=== PATIENT | female | born 1985 ===

== ENCOUNTER 2018-05-05 16:45 | Emergency (ER) | payer MEDICAID, OTHER ==
[2018-05-05 17:03] VITALS: TEMP 97.7
[2018-05-05] MEDS ORDERED: Albuterol-Ipratrop 3 mg / 0.5 (3 ml) UD IH STA (17:21)
[2018-05-05 17:26] LABS: BASO # 0.08 K/mm3 (0.0-2.0); BASO % 0.4 % (0.0-3.0); EOS # 0.1 (0.0-0.7); EOS % 0.6 % (1.5-5.0); GRAN # 14.43 (1.4-6.5); GRAN % 75.6 % (50.0-68.0); HEMOGLOBIN 9.1 g/dL (12.0-16.0); LYMPH # 3.5 (1.2-3.4); LYMPH % 18.1 % (22.0-35.0); MEAN CORPUSCULAR HEMOGLOBIN 27.2 pg (25.0-35.0); MEAN CORPUSCULAR HGB CONC 31.6 g/dl (31.0-37.0); MEAN PLATELET VOLUME 8.8 fl (7.0-11.0); MONO % 5.3 % (1.0-6.0); RBC 3.35 10^6/uL (3.5-6.1); RED CELL DISTRIBUTION WIDTH 18.1 % (11.5-14.5); WHITE BLOOD COUNT 19.1 10^3/uL (4.5-11.0)
[2018-05-05 17:36] LABS: INR 1.44; PARTIAL THROMBOPLASTIN TIME 28.2 Seconds (25.1-36.5); PROTHROMBIN TIME 16.5 SECONDS (9.4-12.5)
--- NOTE | 2018-05-05 17:44 | RAD ---
Date of service: 05/05/2018 HISTORY: cough COMPARISON: No prior. FINDINGS: LUNGS: Pulmonary vascular congestion. PLEURA: Right pleural effusion. No pneumothorax apparent. CARDIOVASCULAR: No aortic atherosclerotic calcification present. Normal cardiac size. No pulmonary vascular congestion. OSSEOUS STRUCTURES: No significant abnormalities. VISUALIZED UPPER ABDOMEN: Normal. OTHER FINDINGS: None. IMPRESSION: Pulmonary vascular congestion and right pleural effusion.
[2018-05-05 17:46] LABS: ARTERIAL BLOOD GAS HCO3 28.4 mmol/L (21-28); ARTERIAL BLOOD GAS PCO2 34 mm/Hg (35-45); ARTERIAL BLOOD GAS PH 7.53 (7.35-7.45); ARTERIAL BLOOD GAS TCO2 29.4 mmol.L (22-28)
[2018-05-05 17:51] LABS: D DIMER > 5250 ng/mlDDU (0-243)
[2018-05-05 17:51] LABS: URINE BILIRUBIN SMALL (NEGATIVE); URINE BLOOD NEGATIVE (NEGATIVE); URINE GLUCOSE (UA) NEGATIVE (NEGATIVE); URINE LEUKOCYTE ESTERASE NEGATIVE Leu/uL (NEGATIVE); URINE PROTEIN 30 mg/dL (<30 mg/dL)
[2018-05-05 17:52] LABS: URINE APPEARANCE CLEAR (CLEAR); URINE COLOR DARK YELLOW (YELLOW)
[2018-05-05 17:53] LABS: HCG,QUALITATIVE URINE NEGATIVE (NEGATIVE)
[2018-05-05 17:56] LABS: URINE BACTERIA MANY (NEG); URINE RBC 0 - 2 /hpf (0-2); URINE WBC 0 - 2 /hpf (0-6)
[2018-05-05] MEDS ORDERED: Vancomycin 1gm in NS 250ml 1 GM/250 ML BAG IVPB STA (18:05)
[2018-05-05] MEDS ORDERED: Aztreonam 1 Gm in NS 100mL 100 ML IVPB STA (18:05)
[2018-05-05 18:12] LABS: ALB/GLOB RATIO 0.6 (1.1-1.8); ALBUMIN 3.1 g/dL (3.0-4.8); ALT/SGPT 20 U/L (7-56); AST/SGOT 39 U/L (14-36); BLOOD UREA NITROGEN 23 mg/dL (7-21); CALCIUM 8.9 mg/dL (8.4-10.5); GFR NON-AFRICAN AMERICAN > 60
[2018-05-05 18:23] LABS: B-TYPE NATRIURETIC PEPTIDE 274 pg/mL (0-450); TROPONIN I < 0.01 ng/mL
[2018-05-05] MEDS ORDERED: Sodium Chloride 0.9% 1,000 ML IV STA (18:25)
--- NOTE | 2018-05-05 19:07 | ED PDOC ---
Arrival/HPI - General Chief Complaint: Shortness Of Breath Time Seen by Provider: 05/05/18 17:11 - History of Present Illness Narrative History of Present Illness (Text): 05/05/18 19:07 33-year-old female presents today with worsening shortness of breath over the past 4 weeks. On March 28 the patient was seen at [facility] and was diagnosed with pneumonia and pleural effusion. At that time the patient signed out AGAINST MEDICAL ADVICE and then return to the emergency room again on 04/01/2018 for shortness of breath and again signed out AGAINST MEDICAL ADVICE. Patient states she was sent home on antibiotics and has been gradually worsening over the past 4 weeks. Patient states she's come to the point that she's had decreased appetite she feels very fatigued to the point where she needs assistance when she is walking to the bathroom. Patient denies calf pain. Denies any recent travel. Patient states she currently smokes and has been smoking since she was 13 years old. Patient states she's been having a productive cough with right-sided chest pain. Patient states the sputum is green in color. Past Medical History - Provider Review Nursing Documentation Reviewed: Yes - Travel History Have you recently traveled outside [place] w/in the past 3 mons?: No - Infectious Disease Hx of Infectious Diseases: None - Cardiac Hx Cardiac Disorders: No - Pulmonary Hx Respiratory Disorders: Yes Hx Asthma: Yes Hx Chronic Obstructive Pulmonary Disease (COPD): Yes - Neurological Hx Neurological Disorder: No - HEENT Hx HEENT Disorder: No - Renal Hx Renal Disorder: Yes Other/Comment: Endometriosis. ovarian cysts - Endocrine/Metabolic Hx Endocrine Disorders: Yes Hx Systemic Lupus Erythematosus: Yes - Hematological/Oncological Hx Blood Disorders: No - Integumentary Hx Dermatological Disorder: Yes (Alopecia) - Musculoskeletal/Rheumatological Hx Musculoskeletal Disorders: Yes Hx Rheumatoid Arthritis: Yes - Gastrointestinal Hx Gastrointestinal Disorders: No - Genitourinary/Gynecological Hx Genitourinary Disorders: No - Psychiatric Hx Psychophysiologic Disorder: Yes Hx Anxiety: Yes Hx Bipolar Disorder: Yes Hx Substance Use: No - Surgical History Hx Appendectomy: Yes - Anesthesia Hx Anesthesia: Yes - Suicidal Assessment Feels Threatened In Home Enviroment: No Family/Social History - Physician Review Nursing Documentation Reviewed: Yes Family/Social History: Unknown Family HX Smoking Status: Heavy Smoker > 10 Cigarettes Daily Hx Alcohol Use: No Hx Substance Use: No Allergies/Home Meds Allergies/Adverse Reactions: Allergies Penicillins Allergy (Verified 05/05/18 17:13) SWELLING Home Medications: Home Meds Medication Instructions Recorded Confirmed Albuterol 0.083% [Albuterol 0.083% 2.5 mg INH PRN PRN 03/29/18 03/29/18 Inhal Ila (2.5 mg/3 ml) UD] Albuterol Sulfate [Ventolin Hfa] 2 puff INH BID PRN 03/29/18 03/29/18 Albuterol/Ipratropium [Combivent 1 puff INH PRN PRN 03/29/18 03/29/18 Respimat] Cyclobenzaprine [Flexeril] 10 mg PO TID 03/29/18 03/29/18 Gabapentin [Neurontin] 300 mg PO TID 03/29/18 03/29/18 Meloxicam [Mobic] 15 mg PO DAILY 03/29/18 03/29/18 Pregabalin [Lyrica] 225 mg PO BID 03/29/18 03/29/18 Tocilizumab [Actemra] 162 mg IM QWK 03/29/18 03/29/18 traMADol [Ultram] 50 mg PO Q6 03/29/18 03/29/18 Review of Systems - Review of Systems Constitutional: Fatigue. absent: Fevers ENT: absent: Sore Throat, Sinus Congestion Respiratory: SOB, Cough, Sputum Cardiovascular: Chest Pain (right sided) Gastrointestinal: Appetite Changes. absent: Abdominal Pain, Constipation, Diarrhea, Nausea, Vomiting Genitourinary Female: absent: Dysuria, Frequency, Hematuria Musculoskeletal: absent: Arthralgias, Back Pain, Neck Pain Skin: absent: Rash, Pruritis Neurological: absent: Headache, Dizziness Psychiatric: absent: Anxiety, Depression, Suicidal Ideation Physical Exam Vital Signs Reviewed: Yes Vital Signs Temp Pulse Resp BP Pulse Ox 05/05/18 17:18 22 05/05/18 17:02 97.7 F 108 H 20 97/52 L 99 Temperature: Afebrile Blood Pressure: Hypotensive Pulse: Tachycardic Respiratory Rate: Normal Appearance: Positive for: Non-Toxic, Comfortable, Ill-Appearing Pain Distress: None Mental Status: Positive for: Alert and Oriented X 3 - Systems Exam Head: Present: Atraumatic Mouth: Present: Normal Lips, Normal Tounge. No: Drooling, Trismus Neck: Present: Normal Range of Motion, Trachea Midline Respiratory/Chest: Present: Good Air Exchange, Decreased Breath Sounds (+ decreased breath sounds right sided), Rhonchi (rhonchi noted left lung), Ta chypneic, Tender to Palpation (+ minimal ttp over right anterior chest pain). No: Clear to Auscultation, Respiratory Distress, Accessory Muscle Use, Wheezes Cardiovascular: Present: Tachycardic. No: Murmurs Abdomen: No: Tenderness, Distention, Rebound, Guarding Upper Extremity: Present: Normal ROM Lower Extremity: Present: Normal ROM Neurological: Present: GCS=15, Speech Normal Skin: Present: Warm, Dry, Normal Color. No: Rashes Psychiatric: Present: Alert, Oriented x 3 Medical Decision Making ED Course and Treatment: 05/05/18 19:24 33yr old female with 4 week hx of worsening SOB, productive cough. pt tachycardia, tachypnea, blood pressure 95/63. Patient saturating 97% on room air Alert and oriented. Chest x-ray:FINDINGS: LUNGS: Pulmonary vascular congestion. PLEURA: Right pleural effusion. No pneumothorax apparent. CARDIOVASCULAR: No aortic atherosclerotic calcification present. Normal cardiac size. No pulmonary vascular congestion. OSSEOUS STRUCTURES: No significant abnormalities. VISUALIZED UPPER ABDOMEN: Normal. OTHER FINDINGS: None. IMPRESSION: Pulmonary vascular congestion and right pleural effusion. CBC White blood cell count 19.1, hemoglobin 9.1 CMP sodium 128 BUN 23 creatinine 0.9 Troponin within normal limits BMP within normal limits D-dimer is greater than 5250 Lactate 2.0 Blood and urine cultures are pending Code sepsis was called. Patient was started on normal saline 30 mL per KG bolus. Patient was started on vancomycin and aztreonam IV CT Angio; case discussed with dr. Barbara vu in depth; all results discussed with patient in depth. pt agrees to stay in hospital. case discussed with dr. Frank; accepts admission for sepsis, pleural effusion, leukocytosis. I advised dr. frank and medial resident to follow with CTA results. impression; sepsis, pleural effusion, leukocytosis, dyspnea admit to tele. 05/05/18 23:19 the patient was seen at beside by the resident and dr frank. the decision to upgrade patient to ICU was made. inhouse transfer order to ICU was entered. - Lab Interpretations Lab Results: 05/05/18 17:10 05/05/18 17:50 Lab Results 05/05/18 17:50: Sodium 128 L, Chloride 86 L, Potassium 4.0, Carbon Dioxide 31, Anion Gap 16, BUN 23 H, Creatinine 0.9, Est GFR ( Amer) > 60, Est GFR (Non-Af Amer) > 60, Random Glucose 129 H, Calcium 8.9, Total Bilirubin 0.6, AST 39 H D, ALT 20, Alkaline Phosphatase 190 H, Lactate Dehydrogenase 491, Total Creatine Kinase 100, Troponin I < 0.01, NT-Pro-B Natriuret Pep 274, Total Protein 8.0, Albumin 3.1, Globulin 4.9, Albumin/Globulin Ratio 0.6 L 05/05/18 17:44: pCO2 34 L, pO2 67.0 L, HCO3 28.4 H, ABG pH 7.53 H, ABG Total CO2 29.4 H, ABG O2 Saturation 94.0 L, ABG Base Excess 5.8 H, ABG Potassium 3.2 L, Sodium 127.0 L, Chloride 93.0 L, Glucose 124 H, Lactate 2.0, FiO2 21.0, Arterial Blood Potassium 3.2 L 05/05/18 17:43: Urine Color Dark yellow, Urine Appearance Clear, Urine pH 6.0, Ur Specific [place] 1.025, Urine Protein 30 H, Urine Glucose (UA) Negative, Urin e Ketones Negative, Urine Blood Negative, Urine Nitrate Negative, Urine Bilirubin Small H, Urine Urobilinogen 1.0 H, Ur Leukocyte Esterase Negative, U rine RBC 0 - 2, Urine WBC 0 - 2, Ur Epithelial Cells 10 - 12, Urine Bacteria Many, Urine HCG, Qual Negative 05/05/18 17:10: PT 16.5 H, INR 1.44, APTT 28.2, D-Dimer, Quantitative > 5250 H 05/05/18 17:10: WBC 19.1 H, RBC 3.35 L, Hgb 9.1 L, Hct 28.8 L, MCV 86.0, MCH 27.2, MCHC 31.6, RDW 18.1 H, Plt Count 610 H, MPV 8.8, Gran % 75.6 H, Lymph % (Auto) 18.1 L, [place] % (Auto) 5.3, Eos % (Auto) 0.6 L, Baso % (Auto) 0.4, Gran # 14.43 H, Lymph # (Auto) 3.5 H, [place] # (Auto) 1.0 H, Eos # (Auto) 0.1, Baso # (Auto) 0.08 - RAD Interpretation Radiology Orders: 05/05/18 17:12 CHEST PORTABLE [RAD] Stat 05/05/18 18:16 ANGIO CHEST PE PROTOCOL [CT] Stat - Medication Orders Current Medication Orders: Aztreonam (Azactam 1 Gm) 100 mls @ 100 mls/hr IVPB STAT STA; Protocol Stop: 05/05/18 19:04 Last Admin: 05/05/18 18:21 Dose: 100 mls/hr eMAR Start Stop Document 05/05/18 18:21 TA (Rec: 05/05/18 18:21 TA [email or web address] Intravenous Solution Start Date 05/05/18 Start Time 18:21 Vancomycin HCl (Vancomycin 1gm) 1 gm in 250 mls @ 167 mls/hr IVPB STAT STA; Protocol Stop: 05/05/18 19:34 Last Admin: 05/05/18 18:58 Dose: 167 mls/hr eMAR Start Stop Document 05/05/18 18:58 TA (Rec: 05/05/18 18:58 TA [email or web address] Intravenous Solution Start Date 05/05/18 Start Time 18:58 Discontinued Medications Albuterol/Ipratropium (Duoneb 3 Mg/0.5 Mg (3 Ml) Ud) 3 ml IH STAT STA Stop: 05/05/18 17:22 Last Admin: 05/05/18 18:25 Dose: 3 ml Sodium Chloride 2,160 ml/ IV (SUPPLIES) 2,160 mls @ 4,354.5 mls/hr IV ONCE ONE Stop: 05/05/18 18:59 Last Admin: 05/05/18 18:48 Dose: 4,354.5 mls/hr eMAR Start Stop Document 05/05/18 18:48 TA (Rec: 05/05/18 18:48 TA [email or web address]) Intravenous Solution Start Date 05/05/18 Start Time 18:48 Disposition/Present on Arrival - Present on Arrival Any Indicators Present on Arrival: No History of DVT/PE: No History of Uncontrolled Diabetes: No Urinary Catheter: No History of Decub. Ulcer: No History Surgical Site Infection Following: None - Disposition Have Diagnosis and Disposition been Completed?: Yes Diagnosis: Pleural effusion, COPD (chronic obstructive pulmonary disease), Shortness of breath, Chest pain Disposition: HOSPITALIZED Disposition Time: 18:50 Patient Plan: Admission, Telemetry Patient Problems: Current Active Problems Problem Status Onset COPD (chronic obstructive pulmonary disease) Acute Chest pain Acute Pleural effusion Acute Shortness of breath Acute Condition: GUARDED
[2018-05-05] MEDS ORDERED: Iohexol 350 MG/100 ML VIAL ONE (19:09)
[2018-05-05 20:28] VITALS: O2SAT 100
[2018-05-05] MEDS ORDERED: Levalbuterol 1.25 MG/3 ML Inhal Soln UD IH STA (20:51)
[2018-05-05] MEDS ORDERED: Heparin25000 units/250ml 1/2NS 25,000 UNITS/250 ML BAG IV PRN (21:07)
[2018-05-05] MEDS ORDERED: Levalbuterol 0.63 MG/3 ML Inhal Soln UD IH PRN (21:17)
[2018-05-05 21:26] VITALS: BMI 28.2
[2018-05-05] MEDS ORDERED: Heparin 25,000units in 1/2NS /250 ML BAG IV PRN (21:27)
--- NOTE | 2018-05-05 21:51 | CP.PCM.HP ---
<Felton Russell - Last Filed: 05/06/18 04:46> History of Present Illness - History of Present Illness History of Present Illness: Felton Russell DO PGY1 - Internal Medicine Operational Risk Consultant - Hospital H&P CC: SOB / Chest Tenderness 33F w/ a PMH Of COPD, RA, Fibromyalgia presented to [facility] on 05[place]05 w/ a CC of chest tenderness, and shortness of breath x1mo She reports no inciting factors which caused her symptoms; states that her complaints have been significantly worsening over the past 3 weeks. She reports that she is having trouble breathing, chest tightness, shortness of breath, orthopnea, dyspnea on exertion, cough of 2 weeks with dark brown phlegm. Patient reports associated symptoms of sweating, intermittent fevers/chills, weight loss (unknown amount) over the past month, decreased appetite, weakness. She reported that she had been seen twice in the ED for her symptoms however had to AMA due to not being able to care for her children; she reports seeing a pulmonlogist outpatient who recommended bronchodilator therapy. Remainder of 12 system ROS is negative. PMD: Tello Stoner Rheum: Hannah Pharm[facility]: [facility] PMH: RA, Fibromyalgia Dx 2 year ago; COPD not on home O2 PSH: Laproscopic appendectomy Social: 10 pack year history; EtOH denies; Illicit drug use denies Family Hx: Denies Allergies: Penicillin Home Rx: Meloxicam 15 QD, Cyclobenzaprine 10 TID, Lyrica 225 BID, Gabapentin 300 TID Present on Admission - Present on Admission Any Indicators Present on Admission: No Review of Systems - Review of Systems All systems: reviewed and no additional remarkable complaints except Review of Systems: As per HPI Past Patient History - Infectious Disease Hx of Infectious Diseases: None - Past Social History Smoking Status: Heavy Smoker > 10 Cigarettes Daily - CARDIAC Hx Cardiac Disorders: No - PULMONARY Hx Respiratory Disorders: Yes Hx Asthma: Yes Hx Chronic Obstructive Pulmonary Disease (COPD): Yes - NEUROLOGICAL Hx Neurological Disorder: No - HEENT Hx HEENT Problems: No - RENAL Hx Chronic Kidney Disease: Yes Other/Comment: Endometriosis. ovarian cysts - ENDOCRINE/METABOLIC Hx Endocrine Disorders: Yes Hx Systemic Lupus Erythematosus: Yes - HEMATOLOGICAL/ONCOLOGICAL Hx Blood Disorders: No - INTEGUMENTARY Hx Dermatological Problems: Yes (Alopecia) - MUSCULOSKELETAL/RHEUMATOLOGICAL Hx Musculoskeletal Disorders: Yes Hx Rheumatoid Arthritis: Yes - GASTROINTESTINAL Hx Gastrointestinal Disorders: No - GENITOURINARY/GYNECOLOGICAL Hx Genitourinary Disorders: No - PSYCHIATRIC Hx Psychophysiologic Disorder: Yes Hx Anxiety: Yes Hx Bipolar Disorder: Yes Hx Substance Use: No - SURGICAL HISTORY Hx Appendectomy: Yes - ANESTHESIA Hx Anesthesia: Yes Meds Allergies/Adverse Reactions: Allergies Allergy/AdvReac Type Severity Reaction Status Date / Time Penicillins Allergy SWELLING Verified 05/06/18 01:24 Physical Exam - Constitutional Appears: No Acute Distress, Older Than Stated Age, Chronically Ill - Head Exam Head Exam: ATRAUMATIC Additional comments: Alopecia - Eye Exam Eye Exam: EOMI, Normal appearance, PERRL. absent: Scleral icterus - ENT Exam ENT Exam: Mucous Membranes Moist Additional comments: some crusting/ poor oral hygeine - Neck Exam Neck exam: Positive for: Normal Inspection. Negative for: Tenderness - Respiratory Exam Additional comments: Upon auscultation; Her R lobe is aerating well; no crackles; Her L lobe breath sounds are worsening moving from upper parker to lower Mild rales appreciated on exam; no wheezes appreciated. - Cardiovascular Exam Cardiovascular Exam: Tachycardia, +S1, +S2 - GI/Abdominal Exam GI & Abdominal Exam: Distended (Tympanic), Normal Bowel Sounds, Soft. absent: Tenderness - Extremities Exam Extremities exam: Positive for: normal inspection, pedal pulses present. Negative for: pedal edema, tenderness - Back Exam Back exam: absent: CVA tenderness (L), CVA tenderness (R) - Neurological Exam Neurological exam: Alert, CN II-XII Intact, Oriented x3 - Psychiatric Exam Psychiatric exam: Normal Affect, Normal Mood - Skin Skin Exam: Dry, Intact, Normal Color, Warm Results - Vital Signs Recent Vital Signs: Last Vital Signs Temp 97.7 F 05/05/18 17:02 Pulse 102 H 05/05/18 20:27 Resp 18 05/05/18 20:27 BP 109/62 05/05/18 20:27 Pulse Ox 100 05/05/18 20:27 - Labs Result Diagrams: 05/05/18 17:10 05/05/18 17:50 Labs: Laboratory Results - last 24 hr 05/05/18 05/05/18 05/05/18 17:10 17:10 17:43 WBC 19.1 H RBC 3.35 L Hgb 9.1 L Hct 28.8 L MCV 86.0 MCH 27.2 MCHC 31.6 RDW 18.1 H Plt Count 610 H MPV 8.8 Gran % 75.6 H Lymph % (Auto) 18.1 L [place] % (Auto) 5.3 Eos % (Auto) 0.6 L Baso % (Auto) 0.4 Gran # 14.43 H Lymph # (Auto) 3.5 H [place] # (Auto) 1.0 H Eos # (Auto) 0.1 Baso # (Auto) 0.08 PT 16.5 H INR 1.44 APTT 28.2 D-Dimer, Quantitative > 5250 H pCO2 pO2 HCO3 ABG pH ABG Total CO2 ABG O2 Saturation ABG Base Excess ABG Potassium Sodium Chloride Glucose Lactate FiO2 Potassium Carbon Dioxide Anion Gap BUN Creatinine Est GFR ( Amer) Est GFR (Non-Af Amer) Random Glucose Calcium Total Bilirubin AST ALT Alkaline Phosphatase Lactate Dehydrogenase Total Creatine Kinase Troponin I NT-Pro-B Natriuret Pep Total Protein Albumin Globulin Albumin/Globulin Ratio Arterial Blood Potassium Urine Color Dark yellow Urine Appearance Clear Urine pH 6.0 Ur Specific [place] 1.025 Urine Protein 30 H Urine Glucose (UA) Negative Urine Ketones Negative Urine Blood Negative Urine Nitrate Negative Urine Bilirubin Small H Urine Urobilinogen 1.0 H Ur Leukocyte Esterase Negative Urine RBC 0 - 2 Urine WBC 0 - 2 Ur Epithelial Cells 10 - 12 Urine Bacteria Many Urine HCG, Qual Negative 05/05/18 05/05/18 17:44 17:50 WBC RBC Hgb Hct MCV MCH MCHC RDW Plt Count MPV Gran % Lymph % (Auto) [place] % (Auto) Eos % (Auto) Baso % (Auto) Gran # Lymph # (Auto) [place] # (Auto) Eos # (Auto) Baso # (Auto) PT INR APTT D-Dimer, Quantitative pCO2 34 L pO2 67.0 L HCO3 28.4 H ABG pH 7.53 H ABG Total CO2 29.4 H ABG O2 Saturation 94.0 L ABG Base Excess 5.8 H ABG Potassium 3.2 L Sodium 127.0 L 128 L Chloride 93.0 L 86 L Glucose 124 H Lactate 2.0 FiO2 21.0 Potassium 4.0 Carbon Dioxide 31 Anion Gap 16 BUN 23 H Creatinine 0.9 Est GFR ( Amer) > 60 Est GFR (Non-Af Amer) > 60 Random Glucose 129 H Calcium 8.9 Total Bilirubin 0.6 AST 39 H D ALT 20 Alkaline Phosphatase 190 H Lactate Dehydrogenase 491 Total Creatine Kinase 100 Troponin I < 0.01 NT-Pro-B Natriuret Pep 274 Total Protein 8.0 Albumin 3.1 Globulin 4.9 Albumin/Globulin Ratio 0.6 L Arterial Blood Potassium 3.2 L Urine Color Urine Appearance Urine pH Ur Specific [place] Urine Protein Urine Glucose (UA) Urine Ketones Urine Blood Urine Nitrate Urine Bilirubin Urine Urobilinogen Ur Leukocyte Esterase Urine RBC Urine WBC Ur Epithelial Cells Urine Bacteria Urine HCG, Qual Assessment & Plan - Assessment and Plan (Free Text) Assessment: PMH Of COPD, RA, Fibromyalgia presented to [facility] ED on 05/05 w/ a CC of chest tenderness, and shortness of breath x1mo; found to have massive parapneumonic effusion of the R lung w/ gross atelectasis of the RML/RLL. Plan: Parapneumonic effusion w/ B type symptoms Etiologies: Lung CA, Pneumonia, CHF, PE, Hemothorax, Empyema No recent evidence or history of trauma reported BNP: WNL D-Dimer elevated CTA CHEST PE PROTCOL: 1. Large complex and right pleural effusion w/ probable empyema which compresses the entire right lung. Pockets of air are seen suspicious for infection of the right effusion. 2. No evidence of central or segmental PE is seen 3. Incidentally, enlarged liver and mild diffuse fatty infiltration as well as a small cystic lesion is seen in the abdomen. 4. Ground glass and nodular infiltrates are seen throughout both lungs, likely representing a diffuse disseminated infection. 5. Aortopulmonary window a precarinal lymphadenopathy is seen, likely reactive in nature HIV 1/2 Procal pending ABG Shock Mycobac cult/stain / AFB smear Sputum Cx BLood Cx Xopenex Q6H PRN Protonix 40 IVP Vancomycin 1gm QD ID Consulted Heme Onc Consulted CT Surgery Consulted - will most likely need thoracotomy Hepatic Hyperdensity AST/ALT wnl; Alk Phos elevated; Tbili normal Abd US CEA, AFP Normocytic Anemia B12 / Folic Acid; pending Iron 45; TIBC 209L ; Ferritin pending Reticulocyte Count ; pending Hx COPD - Not in acute exacerbation Xopenex Q6 PRN Hx Fibromyalgia : C/w home Meloxicam 15 QD, Cyclobenzaprine 10 TID, Lyrica 225 BID, Gabapentin 300 TID DISPO: Transfer to [facility] for CT Surgical Services/ Further Surgical Evaluation GI/DVT PPX: Protonix/ SCD Patient was seen, examined, discussed w/ attending physician Dr. Lorna Russell DO PGY1 - Internal Medicine Operational Risk Consultant - Date & Time Date: 05/06/18 Time: 00:42 <Sherley Rothman - Last Filed: 05/06/18 06:49> Results - Vital Signs Recent Vital Signs: Last Vital Signs Temp 97.7 F 05/06/18 00:35 Pulse 103 H 05/06/18 00:35 Resp 18 05/06/18 00:35 BP 108/72 05/06/18 00:35 Pulse Ox 100 05/06/18 00:35 - Labs Result Diagrams: 05/05/18 17:10 05/05/18 17:50 Labs: Laboratory Results - last 24 hr 05/05/18 05/05/18 05/05/18 17:10 17:10 17:43 WBC 19.1 H RBC 3.35 L Hgb 9.1 L Hct 28.8 L MCV 86.0 MCH 27.2 MCHC 31.6 RDW 18.1 H Plt Count 610 H MPV 8.8 Gran % 75.6 H Lymph % (Auto) 18.1 L [place] % (Auto) 5.3 Eos % (Auto) 0.6 L Baso % (Auto) 0.4 Gran # 14.43 H Lymph # (Auto) 3.5 H [place] # (Auto) 1.0 H Eos # (Auto) 0.1 Baso # (Auto) 0.08 PT 16.5 H INR 1.44 APTT 28.2 D-Dimer, Quantitative > 5250 H pCO2 pO2 HCO3 ABG pH ABG Total CO2 ABG O2 Saturation ABG Base Excess ABG Potassium Sodium Chloride Glucose Lactate FiO2 Potassium Carbon Dioxide Anion Gap BUN Creatinine Est GFR ( Amer) Est GFR (Non-Af Amer) Random Glucose Calcium Iron TIBC % Saturation Total Bilirubin AST ALT Alkaline Phosphatase Lactate Dehydrogenase Total Creatine Kinase Troponin I NT-Pro-B Natriuret Pep Total Protein Albumin Globulin Albumin/Globulin Ratio Arterial Blood Potassium Urine Color Dark yellow Urine Appearance Clear Urine pH 6.0 Ur Specific [place] 1.025 Urine Protein 30 H Urine Glucose (UA) Negative Urine Ketones Negative Urine Blood Negative Urine Nitrate Negative Urine Bilirubin Small H Urine Urobilinogen 1.0 H Ur Leukocyte Esterase Negative Urine RBC 0 - 2 Urine WBC 0 - 2 Ur Epithelial Cells 10 - 12 Urine Bacteria Many Urine HCG, Qual Negative 05/05/18 05/05/18 05/05/18 17:44 17:50 17:50 WBC RBC Hgb Hct MCV MCH MCHC RDW Plt Count MPV Gran % Lymph % (Auto) [place] % (Auto) Eos % (Auto) Baso % (Auto) Gran # Lymph # (Auto) [place] # (Auto) Eos # (Auto) Baso # (Auto) PT INR APTT D-Dimer, Quantitative pCO2 34 L pO2 67.0 L HCO3 28.4 H ABG pH 7.53 H ABG Total CO2 29.4 H ABG O2 Saturation 94.0 L ABG Base Excess 5.8 H ABG Potassium 3.2 L Sodium 127.0 L 128 L Chloride 93.0 L 86 L Glucose 124 H Lactate 2.0 FiO2 21.0 Potassium 4.0 Carbon Dioxide 31 Anion Gap 16 BUN 23 H Creatinine 0.9 Est GFR ( Amer) > 60 Est GFR (Non-Af Amer) > 60 Random Glucose 129 H Calcium 8.9 Iron 45 TIBC 209 L % Saturation 22 Total Bilirubin 0.6 AST 39 H D ALT 20 Alkaline Phosphatase 190 H Lactate Dehydrogenase 491 Total Creatine Kinase 100 Troponin I < 0.01 NT-Pro-B Natriuret Pep 274 Total Protein 8.0 Albumin 3.1 Globulin 4.9 Albumin/Globulin Ratio 0.6 L Arterial Blood Potassium 3.2 L Urine Color Urine Appearance Urine pH Ur Specific [place] Urine Protein Urine Glucose (UA) Urine Ketones Urine Blood Urine Nitrate Urine Bilirubin Urine Urobilinogen Ur Leukocyte Esterase Urine RBC Urine WBC Ur Epithelial Cells Urine Bacteria Urine HCG, Qual Attending/Attestation - Attestation I have personally seen and examined this patient.: Yes I have fully participated in the care of the patient.: Yes I have reviewed all pertinent clinical information: Yes
[2018-05-05] MEDS ORDERED: Aztreonam 1 Gm in NS 100mL 100 ML IVPB SCH (22:00)
--- NOTE | 2018-05-05 22:06 | CARD ---
APPROVED REPORT Date of service: 05/05/2018 EKG Measurement Heart [id number] <Conclusion> Sinus tachycardia Otherwise normal ECG
[2018-05-05 23:20] LABS: IRON 45 ug/dL (45-180)
[2018-05-05 23:25] LABS: TOTAL IRON BINDING CAPACITY 209 ug/dL (265-497)
[2018-05-05 23:38] LABS: % IRON SATURATION 22 % (20-55)
--- NOTE | 2018-05-06 01:20 | CP.PCM.DIS ---
<Felton Russell - Last Filed: 05/06/18 04:18> Provider - Provider Date of Admission: 05/05/18 20:05 Attending physician: Sherley Allen Primary care physician: Herbie Javed Consults: General Surgery - Dr. Rocha Accepting Transfer Physician - Manuel Thomas Time Spent in preparation of Discharge (in minutes): 45 Diagnosis - Discharge Diagnosis (1) Parapneumonic effusion Status: Acute Priority: High (2) Normocytic anemia Status: Acute Priority: Medium (3) COPD (chronic obstructive pulmonary disease) Status: Chronic Priority: Medium Hospital Course - Lab Results Lab Results: Most Recent Lab Values WBC 19.1 10^3/uL (4.5-11.0) H 05/05/18 17:10 RBC 3.35 10^6/uL (3.5-6.1) L 05/05/18 17:10 Hgb 9.1 g/dL (12.0-16.0) L 05/05/18 17:10 Hct 28.8 % (36.0-48.0) L 05/05/18 17:10 MCV 86.0 fl (80.0-105.0) 05/05/18 17:10 MCH 27.2 pg (25.0-35.0) 05/05/18 17:10 MCHC 31.6 g/dl (31.0-37.0) 05/05/18 17:10 RDW 18.1 % (11.5-14.5) H 05/05/18 17:10 Plt Count 610 10^3/uL (120.0-450.0) H 05/05/18 17:10 MPV 8.8 fl (7.0-11.0) 05/05/18 17:10 Gran % 75.6 % (50.0-68.0) H 05/05/18 17:10 Lymph % (Auto) 18.1 % (22.0-35.0) L 05/05/18 17:10 Keith % (Auto) 5.3 % (1.0-6.0) 05/05/18 17:10 Eos % (Auto) 0.6 % (1.5-5.0) L 05/05/18 17:10 Baso % (Auto) 0.4 % (0.0-3.0) 05/05/18 17:10 Gran # 14.43 (1.4-6.5) H 05/05/18 17:10 Lymph # (Auto) 3.5 (1.2-3.4) H 05/05/18 17:10 Keith # (Auto) 1.0 (0.1-0.6) H 05/05/18 17:10 Eos # (Auto) 0.1 (0.0-0.7) 05/05/18 17:10 Baso # (Auto) 0.08 K/mm3 (0.0-2.0) 05/05/18 17:10 PT 16.5 SECONDS (9.4-12.5) H 05/05/18 17:10 INR 1.44 05/05/18 17:10 APTT 28.2 Seconds (25.1-36.5) 05/05/18 17:10 D-Dimer, Quantitative > 5250 ng/mlDDU (0-243) H 05/05/18 17:10 pCO2 34 mm/Hg (35-45) L 05/05/18 17:44 pO2 67.0 mm/Hg (80-100) L 05/05/18 17:44 HCO3 28.4 mmol/L (21-28) H 05/05/18 17:44 ABG pH 7.53 (7.35-7.45) H 05/05/18 17:44 ABG Total CO2 29.4 mmol.L (22-28) H 05/05/18 17:44 ABG O2 Saturation 94.0 % (95-98) L 05/05/18 17:44 ABG Base Excess 5.8 mmol/L (-2.0-3.0) H 05/05/18 17:44 ABG Potassium 3.2 mmol/L (3.6-5.2) L 05/05/18 17:44 Sodium 127.0 mmol/L (132-148) L 05/05/18 17:44 Chloride 93.0 mmol/L (98-107) L 05/05/18 17:44 Glucose 124 mg/dl (65-105) H 05/05/18 17:44 Lactate 2.0 mmol/L (0.7-2.1) 05/05/18 17:44 FiO2 21.0 % 05/05/18 17:44 Sodium 128 mmol/L (132-148) L 05/05/18 17:50 Potassium 4.0 mmol/L (3.6-5.0) 05/05/18 17:50 Chloride 86 mmol/L (98-107) L 05/05/18 17:50 Carbon Dioxide 31 mmol/L (21-33) 05/05/18 17:50 Anion Gap 16 (10-20) 05/05/18 17:50 BUN 23 mg/dL (7-21) H 05/05/18 17:50 Creatinine 0.9 mg/dl (0.7-1.2) 05/05/18 17:50 Est GFR ( Amer) > 60 05/05/18 17:50 Est GFR (Non-Af Amer) > 60 05/05/18 17:50 Random Glucose 129 mg/dL (70-110) H 05/05/18 17:50 Calcium 8.9 mg/dL (8.4-10.5) 05/05/18 17:50 Iron 45 ug/dL (45-180) 05/05/18 17:50 TIBC 209 ug/dL (265-497) L 05/05/18 17:50 % Saturation 22 % (20-55) 05/05/18 17:50 Total Bilirubin 0.6 mg/dL (0.2-1.3) 05/05/18 17:50 AST 39 U/L (14-36) H D 05/05/18 17:50 ALT 20 U/L (7-56) 05/05/18 17:50 Alkaline Phosphatase 190 U/L (38-126) H 05/05/18 17:50 Lactate Dehydrogenase 491 U/L (333-699) 05/05/18 17:50 Total Creatine Kinase 100 U/L (35-230) 05/05/18 17:50 Troponin I < 0.01 ng/mL 05/05/18 17:50 NT-Pro-B Natriuret Pep 274 pg/mL (0-450) 05/05/18 17:50 Total Protein 8.0 g/dL (5.8-8.3) 05/05/18 17:50 Albumin 3.1 g/dL (3.0-4.8) 05/05/18 17:50 Globulin 4.9 gm/dL 05/05/18 17:50 Albumin/Globulin Ratio 0.6 (1.1-1.8) L 05/05/18 17:50 Arterial Blood Potassium 3.2 mmol/L (3.6-5.2) L 05/05/18 17:44 Urine Color Dark yellow (YELLOW) 05/05/18 17:43 Urine Appearance Clear (CLEAR) 05/05/18 17:43 Urine pH 6.0 (4.7-8.0) 05/05/18 17:43 Ur Specific Holland 1.025 (1.005-1.035) 05/05/18 17:43 Urine Protein 30 mg/dL (<30 mg/dL) H 05/05/18 17:43 Urine Glucose (UA) Negative mg/dL (NEGATIVE) 05/05/18 17:43 Urine Ketones Negative mg/dL (NEGATIVE) 05/05/18 17:43 Urine Blood Negative (NEGATIVE) 05/05/18 17:43 Urine Nitrate Negative (NEGATIVE) 05/05/18 17:43 Urine Bilirubin Small (NEGATIVE) H 05/05/18 17:43 Urine Urobilinogen 1.0 E.U./dL (<1 E.U./dL) H 05/05/18 17:43 Ur Leukocyte Esterase Negative Altaf/uL (NEGATIVE) 05/05/18 17:43 Urine RBC 0 - 2 /hpf (0-2) 05/05/18 17:43 Urine WBC 0 - 2 /hpf (0-6) 05/05/18 17:43 Ur Epithelial Cells 10 - 12 /hpf (0-5) 05/05/18 17:43 Urine Bacteria Many (NEG) 05/05/18 17:43 Urine HCG, Qual Negative (NEGATIVE) 05/05/18 17:43 - Hospital Course Hospital Course: Felton Russell DO PGY1 - Internal Medicine [employer] Professor - Hospital DC Summary Upon Admission: 33F w/ a PMH Of COPD, RA, Fibromyalgia presented to [facility] ED on 05/05 w/ a CC of chest tenderness, and shortness of breath x1mo She reports no inciting factors which caused her symptoms; states that her complaints have been significantly worsening over the past 3 weeks. She reports that she is having trouble breathing, chest tightness, shortness of breath, orthopnea, dyspnea on exertion, cough of 2 weeks with dark brown phlegm. Patient reports associated symptoms of sweating, intermittent fevers/chills, weight loss (unknown amount) over the past month, decreased appetite, weakness. She reported that she had been seen twice in the ED for her symptoms however had to AMA due to not being able to care for her children; she reports seeing a pulmonlogist outpatient who recommended bronchodilator therapy. Remainder of 12 system ROS is negative. Hospital Course In the ED, a CT Chest revealed a large parapneumonic effusion. In the setting of Btype symptoms it is important to rule out malignancies; however the differentials in this situation include Pneumonia, CHF, PE, Empyema. Her BNP was within normal limits; her DDimer was elevated. The prelim read of CTA-PE was read as: 1. Large complex and right pleural effusion w/ probable empyema which compresses the entire right lung. Pockets of air are seen suspicious for infection of the right effusion. 2. No evidence of central or segmental PE is seen 3. Incidentally, enlarged liver and mild diffuse fatty infiltration as well as a small cystic lesion is seen in the abdomen. 4. Ground glass and nodular infiltrates are seen throughout both lungs, likely representing a diffuse disseminated infection. 5. Aortopulmonary window a precarinal lymphadenopathy is seen, likely reactive in nature Given these findings an extensive workup needs to be completed including thor acotomy w/ analysis of effusion fluid. General surgery was consulted, and recommended transfer to [facility] for evaluation by CT Surgery Dr. Rocha. - Date & Time of H&P Date of H&P: 05/06/18 Time of H&P: 04:31 Discharge Exam - Head Exam Head Exam: ATRAUMATIC, NORMOCEPHALIC - Eye Exam Eye Exam: EOMI, Normal appearance, PERRL. absent: Scleral icterus - Respiratory Exam Additional comments: Upon auscultation; Her R lobe is aerating well; no crackles; Her L lobe breath sounds are worsening moving from upper parker to lower Mild rales appreciated on exam; no wheezes appreciated. - Cardiovascular Exam Cardiovascular Exam: RRR, +S1, +S2. absent: Systolic Murmur - GI/Abdominal Exam GI & Abdominal Exam: Normal Bowel Sounds, Soft. absent: Tenderness Additional comments: Distended; Tympanic - Neurological Exam Neurological exam: Alert, CN II-XII Intact - Psychiatric Exam Psychiatric exam: Normal Affect, Normal Mood - Skin Skin Exam: Dry, Intact, Normal Color, Warm Discharge Plan - Follow Up Plan Condition: GUARDED Disposition: OTHER INSTITUTION Additional Instructions: transfer to [facility] requested by CT surgeon Dr. Rocha accepting physician Dr. Nicolas Referrals: Herbie Javed MD [Primary Care Provider] - <LornaSherley - Last Filed: 05/06/18 06:49> Provider - Provider Date of Admission: 05/05/18 20:05 Attending physician: Kathe Garrett MD Primary care physician: Herbie Wagner [facility] Course - Lab Results Lab Results: Most Recent Lab Values WBC 19.1 10^3/uL (4.5-11.0) H 05/05/18 17:10 RBC 3.35 10^6/uL (3.5-6.1) L 05/05/18 17:10 Hgb 9.1 g/dL (12.0-16.0) L 05/05/18 17:10 Hct 28.8 % (36.0-48.0) L 05/05/18 17:10 MCV 86.0 fl (80.0-105.0) 05/05/18 17:10 MCH 27.2 pg (25.0-35.0) 05/05/18 17:10 MCHC 31.6 g/dl (31.0-37.0) 05/05/18 17:10 RDW 18.1 % (11.5-14.5) H 05/05/18 17:10 Plt Count 610 10^3/uL (120.0-450.0) H 05/05/18 17:10 MPV 8.8 fl (7.0-11.0) 05/05/18 17:10 Gran % 75.6 % (50.0-68.0) H 05/05/18 17:10 Lymph % (Auto) 18.1 % (22.0-35.0) L 05/05/18 17:10 Keith % (Auto) 5.3 % (1.0-6.0) 05/05/18 17:10 Eos % (Auto) 0.6 % (1.5-5.0) L 05/05/18 17:10 Baso % (Auto) 0.4 % (0.0-3.0) 05/05/18 17:10 Gran # 14.43 (1.4-6.5) H 05/05/18 17:10 Lymph # (Auto) 3.5 (1.2-3.4) H 05/05/18 17:10 Keith # (Auto) 1.0 (0.1-0.6) H 05/05/18 17:10 Eos # (Auto) 0.1 (0.0-0.7) 05/05/18 17:10 Baso # (Auto) 0.08 K/mm3 (0.0-2.0) 05/05/18 17:10 PT 16.5 SECONDS (9.4-12.5) H 05/05/18 17:10 INR 1.44 05/05/18 17:10 APTT 28.2 Seconds (25.1-36.5) 05/05/18 17:10 D-Dimer, Quantitative > 5250 ng/mlDDU (0-243) H 05/05/18 17:10 pCO2 34 mm/Hg (35-45) L 05/05/18 17:44 pO2 67.0 mm/Hg (80-100) L 05/05/18 17:44 HCO3 28.4 mmol/L (21-28) H 05/05/18 17:44 ABG pH 7.53 (7.35-7.45) H 05/05/18 17:44 ABG Total CO2 29.4 mmol.L (22-28) H 05/05/18 17:44 ABG O2 Saturation 94.0 % (95-98) L 05/05/18 17:44 ABG Base Excess 5.8 mmol/L (-2.0-3.0) H 05/05/18 17:44 ABG Potassium 3.2 mmol/L (3.6-5.2) L 05/05/18 17:44 Sodium 127.0 mmol/L (132-148) L 05/05/18 17:44 Chloride 93.0 mmol/L (98-107) L 05/05/18 17:44 Glucose 124 mg/dl (65-105) H 05/05/18 17:44 Lactate 2.0 mmol/L (0.7-2.1) 05/05/18 17:44 FiO2 21.0 % 05/05/18 17:44 Sodium 128 mmol/L (132-148) L 05/05/18 17:50 Potassium 4.0 mmol/L (3.6-5.0) 05/05/18 17:50 Chloride 86 mmol/L (98-107) L 05/05/18 17:50 Carbon Dioxide 31 mmol/L (21-33) 05/05/18 17:50 Anion Gap 16 (10-20) 05/05/18 17:50 BUN 23 mg/dL (7-21) H 05/05/18 17:50 Creatinine 0.9 mg/dl (0.7-1.2) 05/05/18 17:50 Est GFR ( Amer) > 60 05/05/18 17:50 Est GFR (Non-Af Amer) > 60 05/05/18 17:50 Random Glucose 129 mg/dL (70-110) H 05/05/18 17:50 Calcium 8.9 mg/dL (8.4-10.5) 05/05/18 17:50 Iron 45 ug/dL (45-180) 05/05/18 17:50 TIBC 209 ug/dL (265-497) L 05/05/18 17:50 % Saturation 22 % (20-55) 05/05/18 17:50 Total Bilirubin 0.6 mg/dL (0.2-1.3) 05/05/18 17:50 AST 39 U/L (14-36) H D 05/05/18 17:50 ALT 20 U/L (7-56) 05/05/18 17:50 Alkaline Phosphatase 190 U/L (38-126) H 05/05/18 17:50 Lactate Dehydrogenase 491 U/L (333-699) 05/05/18 17:50 Total Creatine Kinase 100 U/L (35-230) 05/05/18 17:50 Troponin I < 0.01 ng/mL 05/05/18 17:50 NT-Pro-B Natriuret Pep 274 pg/mL (0-450) 05/05/18 17:50 Total Protein 8.0 g/dL (5.8-8.3) 05/05/18 17:50 Albumin 3.1 g/dL (3.0-4.8) 05/05/18 17:50 Globulin 4.9 gm/dL 05/05/18 17:50 Albumin/Globulin Ratio 0.6 (1.1-1.8) L 05/05/18 17:50 Arterial Blood Potassium 3.2 mmol/L (3.6-5.2) L 05/05/18 17:44 Urine Color Dark yellow (YELLOW) 05/05/18 17:43 Urine Appearance Clear (CLEAR) 05/05/18 17:43 Urine pH 6.0 (4.7-8.0) 05/05/18 17:43 Ur Specific [place] 1.025 (1.005-1.035) 05/05/18 17:43 Urine Protein 30 mg/dL (<30 mg/dL) H 05/05/18 17:43 Urine Glucose (UA) Negative mg/dL (NEGATIVE) 05/05/18 17:43 Urine Ketones Negative mg/dL (NEGATIVE) 05/05/18 17:43 Urine Blood Negative (NEGATIVE) 05/05/18 17:43 Urine Nitrate Negative (NEGATIVE) 05/05/18 17:43 Urine Bilirubin Small (NEGATIVE) H 05/05/18 17:43 Urine Urobilinogen 1.0 E.U./dL (<1 E.U./dL) H 05/05/18 17:43 Ur Leukocyte Esterase Negative Altaf/uL (NEGATIVE) 05/05/18 17:43 Urine RBC 0 - 2 /hpf (0-2) 05/05/18 17:43 Urine WBC 0 - 2 /hpf (0-6) 05/05/18 17:43 Ur Epithelial Cells 10 - 12 /hpf (0-5) 05/05/18 17:43 Urine Bacteria Many (NEG) 05/05/18 17:43 Urine HCG, Qual Negative (NEGATIVE) 05/05/18 17:43 Attending/Attestation - Attestation I have personally seen and examined this patient.: Yes I have fully participated in the care of the patient.: Yes I have reviewed all pertinent clinical information, including history, physical exam and plan: Yes
[2018-05-06 01:27] VITALS: BP 108/72; PULSE 103; RESP 18
--- NOTE | 2018-05-06 08:50 | CT ---
Date of service: 05/05/2018 PROCEDURE: CT Chest with contrast (Pulmonary Angiogram) HISTORY: shortness of breath/cough COMPARISON: None available. TECHNIQUE: Axial computed tomography images were obtained of the chest in the pulmonary arterial phase of enhancement. Coronal and sagittal reformatted images were created and reviewed. Intravenous contrast dose: 100 cc of Omni 350 Radiation dose: Total exam DLP = 508.46 mGy-cm. This CT exam was performed using one or more of the following dose reduction techniques: Automated exposure control, adjustment of the mA and/or kV according to patient size, and/or use of iterative reconstruction technique. FINDINGS: PULMONARY ARTERIES: Unremarkable. No pulmonary embolism. AORTA: No acute findings. No thoracic aortic aneurysm. No aortic atherosclerotic calcification or mural plaque present. LUNGS: There is compressive atelectasis on the right adjacent to the large effusion patchy infiltrates are seen bilaterally consistent with pneumonia PLEURAL SPACES: There is a large loculated appearing pleural effusion on the right which contains pockets of air. The findings are suspicious for empyema. HEART: Unremarkable. No cardiomegaly. No significant pericardial effusion. LYMPH NODES: Mildly enlarged mediastinal lymph nodes most likely reactive BONES, CHEST WALL: Unremarkable. No fracture or destructive lesion OTHER FINDINGS: The report concurs with the preliminary [facility] report IMPRESSION: Large loculated pleural effusion on the right with pockets of air consistent with empyema. Compressive atelectasis in the right lung. Patchy bilateral infiltrates. No evidence of pulmonary embolus
--- NOTE | 2018-05-06 08:59 | US ---
HISTORY: Leg pain and swelling. Evaluate for DVT PHYSICIAN(S): Edson Feliciano MD. TECHNIQUE: Duplex sonography and color-flow Doppler with graded compression were used to evaluate the deep venous systems of both lower extremities. FINDINGS: The visualized deep venous systems of both lower extremities are sonographically normal and compressible. Normal wave forms and augmentation are seen. There is no sonographic evidence for deep venous thrombosis in the visualized segments of both lower extremities. IMPRESSION: No sonographic evidence for deep venous thrombosis in the visualized segments of both lower extremities.
[2018-05-06] MEDS ORDERED: Vancomycin 1gm in NS 250ml 1 GM/250 ML BAG IVPB SCH (10:00)
--- NOTE | 2018-05-06 14:56 | US ---
Date of service: 05/05/2018 HISTORY: Hepatic hyperdensity on CT COMPARISON: None. TECHNIQUE: Sonographic evaluation of the abdomen. FINDINGS: LIVER: Measures 15.3 cm. There is a small area of increased echogenicity at the right lobe liver anteriorly, measuring 3.6 x 1.8 x 2.0 cm with remaining hepatic parenchyma unremarkable. Correlating with prior chest CT upper abdomen sections 04/26/2018, this reflects focal fatty infiltration as this is a typical location adjacent to the false form ligament. GALLBLADDER: Tumefactive appearing sludge is suggested in the gallbladder avascular on color Doppler ultrasound with the gallbladder only mildly distended. Mild mural edema is difficult to exclude at 2.9 mm thickness. No sonographic Galeana's sign identified. Gallbladder wall measures 5.1 mm however the gallbladder is only mildly distended. Mural thickening is in apparent in prior chest CT performed 05/05/2018. COMMON BILE DUCT: Measures 5.1 mm. No stones. No dilatation. PANCREAS: The tail of the pancreas is obscured by overlying bowel gas with remainder unremarkable. RIGHT KIDNEY: Measures 9.4cm. Normal echogenicity. No calculus, mass, or hydronephrosis. LEFT KIDNEY: Measures 9.7cm. Normal echogenicity. No calculus, mass, or hydronephrosis. SPLEEN: Normal in size and contour. No mass. AORTA: No aneurysmal dilatation. IVC: Unremarkable. OTHER FINDINGS: Right pleural effusion identified incidentally. IMPRESSION: 1. Focal fatty infiltration right lobe liver anteriorly with liver otherwise unremarkable. 2. Tumefactive sludge in the gallbladder most likely. Mural thickening may be a function of limited gallbladder distension. Clinically correlate for potential cholecystitis. 3. Partial imaging of the pancreas. 4. Incidental partial capture of apparently large right pleural effusion as demonstrated in chest CT 05/05/2018. Concordant preliminary report from [facility], 05/07/2018.
[2018-05-06 16:42] LABS: FOLATE 13.5 ng/mL
== END 2018-05-06 00:35 | disposition designated cancer center or children's hospital (05) ==
LOC: ED 16:45 → UNDOADMIN 20:05 → ERH 20:05
DX: J90 Pleural effusion, not elsewhere classified (principal); J44.9 Chronic obstructive pulmonary disease, unspecified; R06.02 Shortness of breath; R07.9 Chest pain, unspecified; D64.9 Anemia, unspecified; F17.210 Nicotine dependence, cigarettes, uncomplicated
CPT/HCPCS: 71045; 71275; 76700; 80053; 81001; 82550; 82607; 82728; 82746; 82803; 83540; 83550; 83615; 83880; 84484; 84703; 85025; 85378; 85610; 85730; 87040; 87086; 93005; 93970; 96374; 96375; 96376; 99284; J1644; J7030; Q9967